=== PATIENT | male | born 1970 | race Caucasian/White ===

== ENCOUNTER 2017-07-04 16:15 | Emergency (ER) | payer MEDICARE, OTHER ==
--- NOTE | 2017-07-04 16:45 | ED Physician Documentation ---
PD HPI LOWER EXT INJURY - Stated complaint Stated Complaint: R FOOT PX - Chief complaint Chief Complaint: Ext Problem - History obtained from History obtained from: Patient, Family - History of Present Illness PD HPI LOW EXT INJURY LOCATION: Right, Ankle Type of injury: Twist Where injury occurred: Home Timing - onset: Today Timing - duration: Hours (2) Timing - details: Abrupt onset Pain level max: 8 Pain level now: 8 Improved by: Rest, Ice, Immobilization Worsened by: Moving, Palpating Associated symptoms: Swelling. No: Weakness, Numbness, Tingling Contributing factors: No: Anticoagulated Similar symptoms before: Diagnosis (Multiple ankle sprains and foot sprains, rolled his ankle at least 9 times in the past month.) Review of Systems Musculoskeletal: denies: Neck pain, Back pain Neurologic: denies: Focal weakness, Numbness PD PAST MEDICAL HISTORY - Past Medical History Past Medical History: No - Past Surgical History Past Surgical History: No - Present Medications Home Medications: Ambulatory Orders Medication Instructions Recorded Confirmed Hydrocodone/Acetaminophen 1 - 2 each PO Q6H PRN #10 tablet 07/04/17 [Hydrocodon-Acetaminophen 5-325] - Allergies Allergies/Adverse Reactions: Allergies Allergy/AdvReac Type Severity Reaction Status Date / Time ibuprofen Allergy Unknown Verified 07/04/17 16:38 - Living Situation Living Situation: reports: With family Living Arrangement: reports: At home - Social History Does the pt have substance abuse?: No - Family History Family history: reports: Non contributory PD ED PE NORMAL - Vitals Vital signs reviewed: Yes - General General: Alert and oriented X 3, No acute distress - Derm Derm: Warm and dry - Extremities Extremities: Other (R ankle - Tender to palpation over the right lateral malleolus as well as the dorsum of the right foot. Neurovascularly intact. Mild swelling. No gross deformity.) - Neuro Neuro: Alert and oriented X 3 - Psych Psych: Normal mood, Normal affect Results - Vitals Vitals: Vital Signs - 24 hr 07/04/17 07/04/17 16:20 19:20 Temperature 36.6 C Heart Rate 100 86 Respiratory 18 20 Rate Blood Pressure 129/89 H 153/99 H O2 Saturation 96 99 Oxygen O2 Source Room air - Rads (name of study) Right ankle x-ray Radiology: Prelim report reviewed, EMP read contemporaneously, See rad report ( Normal) Right foot x-ray Radiology: Prelim report reviewed, EMP read contemporaneously, See rad report ( Normal) PD MEDICAL DECISION MAKING - ED course Complexity details: reviewed results, re-evaluated patient, considered differential, d/w patient, d/w family ED course: Patient is a 47-year-old male who presents to the emergency department with what appears to be a right foot sprain. Given his multiple recent foot and ankle sprains, will place in a walking boot and have him follow-up closely with his doctor for repeat evaluation. Pain well controlled. Patient counseled regarding signs and symptoms for which I believe and urgent re-evaluation would be necessary. Patient with good understanding of and agreement to plan and is comfortable going home at this time This document was made in part using voice recognition software. While efforts are made to proofread this document, sound alike and grammatical errors may occur. Departure - Departure Disposition: 01 Home, Self Care Clinical Impression: Foot sprain Qualifiers: Encounter type: initial encounter Laterality: right Qualified Code(s): S93.601A - Unspecified sprain of right foot, initial encounter Condition: Good Instructions: ED Sprain Foot, ED Boot Aircast Walker Follow-Up: your,doctor in 1 week [Other] Prescriptions: Hydrocodone/Acetaminophen [Hydrocodon-Acetaminophen 5-325] 1 - 2 each PO Q6H PRN #10 tablet PRN Reason: pain Comments: Return if you worsen. Follow-up with your doctor for repeat evaluation. Do not drink alcohol or drive while on narcotic pain medicine. Note that many narcotic pain relievers also contain tylenol/acetaminophen. Please ensure that your total dose of acetaminophen from all sources does not exceed 3 grams (3000mg) per day. You may constipated on this medication, take a stool softener such as "Colace" twice a day while you are on it. Also recommend a iexf-hfk-[id number] laxative such as senna or MiraLAX any day that you do not have a bowel movement. If you received narcotic pain medication in the emergency department, do not drive or operate machinery for the next 24 hours. Discharge Date/Time: 07/04/17 19:20
--- NOTE | 2017-07-04 17:17 | XRAY Report ---
EXAM: RIGHT ANKLE RADIOGRAPHY EXAM DATE: 07/04/2017 05:04 PM. CLINICAL HISTORY: Injury. COMPARISON: None. TECHNIQUE: 3 views. FINDINGS: Bones: Normal. No fractures or bone lesions. Joints: Normal. No effusion. No subluxations. The ankle mortise is normally aligned. Soft Tissues: There is lateral ankle soft tissue swelling. IMPRESSION: No fracture or subluxation. [facility] Referring Provider Line: [phone] SITE ID: [id number]
--- NOTE | 2017-07-04 17:17 | XRAY Preliminary Report ---
Exam: XR ANKLE 3 VIEW RT IMPRESSION: No fracture or subluxation. [facility] SITE ID: [id number]
[2017-07-04] MEDS ORDERED: HYDROcod/ACETAM 5/325 MG TABLET PO STA (17:23)
--- NOTE | 2017-07-04 18:33 | XRAY Preliminary Report ---
Exam: XR FOOT 3 VIEW RT IMPRESSION: No acute fracture or subluxation. [facility] SITE ID: [id number]
--- NOTE | 2017-07-04 18:33 | XRAY Report ---
EXAM: RIGHT FOOT RADIOGRAPHY EXAM DATE: 07/04/2017 06:03 PM. CLINICAL HISTORY: R foot pain, s/p fall. COMPARISON: None. TECHNIQUE: 3 views. FINDINGS: Bones: Normal. No fractures or bone lesions. Joints: Normal. No subluxations. Soft Tissues: There is an accessory navicular ossicle. IMPRESSION: No acute fracture or subluxation. [facility] Referring Provider Line: [phone] SITE ID: [id number]
[2017-07-04 19:21] VITALS: BP 153/99
== END 2017-07-04 19:20 | disposition home or self-care (01) ==
LOC: ED 16:15
DX: S93.601A Unspecified sprain of right foot, initial encounter (principal); X50.9XXA Other and unspecified overexertion or strenuous movements or postures, initial encounter; Y92.009 Unspecified place in unspecified non-institutional (private) residence as the place of occurrence of the external cause
CPT/HCPCS: 73610; 73630; 99283; A9270

== ENCOUNTER 2022-05-29 10:01 | Emergency (ER) | payer MEDICARE, OTHER ==
[2022-05-29] MEDS ORDERED: PROPARACAINE 0.5% OPHTH DROPS 15 ML EACHEYE STA (10:46)
[2022-05-29 11:14] LABS: BASOPHILS # (AUTO) 0.1 10^3/uL (0.0-0.1); BASOPHILS % (AUTO) 0.6 %; EOSINOPHILS # (AUTO) 0.1 10^3/uL (0.0-0.7); EOSINOPHILS % (AUTO) 1.4 %; HCT - HEMATOCRIT 51.8 % (42.0-52.0); HGB - HEMOGLOBIN 17.5 g/dL (14.0-18.0); LYMPHOCYTES # (AUTO) 2.2 10^3/uL (1.5-3.5); LYMPHOCYTES % (AUTO) 22.1 %; MEAN CORPUSCULAR HEMOGLOBIN 30.5 pg (27.0-31.0); MEAN CORPUSCULAR HGB CONC 33.8 g/dL (32.0-36.0); MEAN CORPUSCULAR VOLUME 90.4 fL (80.0-94.0); MEAN PLATELET VOLUME 8.8 fL (7.4-11.4); MONOCYTES % (AUTO) 10.4 %; NEUTROPHILS # (AUTO) 6.4 10^3/uL (1.5-6.6); NEUTROPHILS % (AUTO) 65.2 %; PLT - PLATELET COUNT 320 10^3/uL (130-450); RED BLOOD COUNT 5.73 10^6/uL (4.70-6.10); RED CELL DISTRIBUTION WIDTH 12.4 % (12.0-15.0); WHITE BLOOD COUNT 9.8 x10^3/uL (4.8-10.8)
[2022-05-29] MEDS ORDERED: diphenhydrAMINE INJ 50 MG/ML VIAL IVP STA (11:15)
[2022-05-29] MEDS ORDERED: DROPERIDOL 5 MG/2 ML VIAL IVP STA (11:15)
--- NOTE | 2022-05-29 11:33 | CT Report ---
PROCEDURE: HEAD WO INDICATIONS: R eye superior vision loss TECHNIQUE: Noncontrast 4.5 mm thick angled axial sections acquired from the foramen magnum to the vertex. For r adiation dose reduction, the following was used: automated exposure control, adjustment of mA and/or kV according to patient size. COMPARISON: None. FINDINGS: Image quality: Diagnostic. Patient motion is noted.. CSF spaces: Basal cisterns are patent. No extra-axial fluid collections. Ventricles are normal in size and shape. Brain: No midline shift. No intracranial masses or hemorrhage. Huffman-white matter interface is norm al. Skull and face: Calvarium and visualized facial bones are intact, without suspicious lesions. Sinuses: Visualized sinuses and mastoids are clear. IMPRESSION: 1. No gross CT evidence of acute intracranial abnormalities. Reviewed by: Harry Gonzales MD on 05/29/2022 11:[address] [facility] Approved by: Harry Gonzales MD on 05/29/2022 11:[address] [facility] Station ID: [id number]
[2022-05-29] MEDS ORDERED: GADOBUTROL 15 MMOL/15 ML VIAL ONE (11:36)
[2022-05-29 11:38] LABS: ALBUMIN 4.1 g/dL (3.2-5.5); ALBUMIN/GLOBULIN RATIO 1.1 (1.0-2.2); ALKALINE PHOSPHATASE 72 IU/L (42-121); ALT ALANINE AMINOTRANSFERASE 25 IU/L (10-60); AST ASPARTATE AMINOTRANSFERASE 20 IU/L (10-42); BILIRUBIN,TOTAL 1.2 mg/dL (0.2-1.0); BUN - BLOOD UREA NITROGEN 18 mg/dL (6-20); CARBON DIOXIDE - CO2 26 mmol/L (21-32); CHLORIDE 103 mmol/L (101-111); CREATININE 1.2 mg/dL (0.6-1.2); GFR - MDRD 63 (>89); GLUCOSE 89 mg/dL (70-100); POTASSIUM 3.5 mmol/L (3.5-5.0); SODIUM 137 mmol/L (135-145); TOTAL PROTEIN 7.7 g/dL (6.7-8.2)
[2022-05-29 11:39] LABS: CRP - C-REACTIVE PROTEIN < 1.0 mg/dL (0-1.0)
[2022-05-29] MEDS ORDERED: GADOBUTROL 15 MMOL/15 ML VIAL IVP ONE (12:54)
--- NOTE | 2022-05-29 12:54 | ED Physician Documentation ---
History of Present Illness - Stated complaint Stated Complaint: VISION LOSS,HIGH BP - Chief complaint Chief Complaint: Neuro - History obtained from History obtained from: Patient - History of Present Illness Timing: How many days ago (3-4) Pain level max: 6 Pain level now: 5 - Additonal information Additional information: 52-year-old male presents to the emergency department stating he has had difficulty with vision in the superior portion of his right eye for the past 3 to 4 days. He states that he has a history of migraine headaches and has had a headache for the past 3 days as well. Nothing seems to make it better or worse. No fevers. No chills. Does not wear contacts. Has not had any trauma. He called his eye doctor who stated that they could see him at the end of June. Went to the walk-in clinic this morning and was sent here. Headache is similar to prior migraines, gradual onset. Positive photophobia. Patient also states that his blood pressure has been high, but he does not usually check his blood pressure. Review of Systems Constitutional: denies: Fever, Chills Throat: denies: Sore throat Cardiac: denies: Chest pain / pressure, Palpitations Respiratory: denies: Cough GI: denies: Vomiting, Constipation, Diarrhea Musculoskeletal: denies: Neck pain, Back pain Neurologic: denies: Headache PD PAST MEDICAL HISTORY - Past Medical History Past Medical History: Yes Musculoskeletal: Chronic back pain - Past Surgical History Past Surgical History: No General: Appendectomy Ortho: Spine surgery - Present Medications Home Medications: Ambulatory Orders Medication Instructions Recorded Confirmed Lisinopril [Zestril] 10 mg PO DAILY #30 tablet 05/29/22 - Allergies Allergies/Adverse Reactions: Allergies Allergy/AdvReac Type Severity Reaction Status Date / Time ibuprofen Allergy Unknown Verified 05/29/22 10:13 - Social History Does the pt smoke?: No Smoking Status: Former smoker Does the pt drink ETOH?: Yes Does the pt have substance abuse?: No - Immunizations Immunizations are current?: Yes PD ED PE NORMAL - Vitals Vital signs reviewed: Yes - General General: Alert and oriented X 3, No acute distress - HEENT HEENT: Atraumatic (No tenderness over the temporal artery), PERRL, EOMI, Ears normal, Moist mucous membranes, Pharynx benign, Other (IOP OD 20, OS 18. Bedside ultrasound appears to have a normal-appearing ocular ultrasound bilaterally. Normal-appearing fundus on funduscopic exam.) - Neck Neck: Supple, no meningeal sign, No bony TTP - Cardiac Cardiac: RRR, Strong equal pulses - Respiratory Respiratory: No respiratory distress, Clear bilaterally - Abdomen Abdomen: Soft, Non tender, Non distended - Back Back: No spinal TTP - Derm Derm: Warm and dry - Extremities Extremities: No edema - Neuro Neuro: Alert and oriented X 3 - Psych Psych: Normal mood, Normal affect Results - Vitals Vitals: Vital Signs - 24 hr 05/29/22 05/29/22 10:11 13:15 Temperature 36.9 C Heart Rate 77 72 Respiratory 18 18 Rate Blood Pressure 187/112 H 177/119 H O2 Saturation 98 96 Oxygen O2 Source Room air - Labs Labs: Laboratory Tests 05/29/22 05/29/22 05/29/22 11:08 11:08 11:08 WBC 9.8 RBC 5.73 Hgb 17.5 Hct 51.8 MCV 90.4 MCH 30.5 MCHC 33.8 RDW 12.4 Plt Count 320 MPV 8.8 Neut # (Auto) 6.4 Lymph # (Auto) 2.2 Cottle # (Auto) 1.0 Eos # (Auto) 0.1 Baso # (Auto) 0.1 Absolute Nucleated RBC 0.00 Nucleated RBC % 0.0 ESR 2 Sodium 137 Potassium 3.5 Chloride 103 Carbon Dioxide 26 Anion Gap 8.0 BUN 18 Creatinine 1.2 Estimated GFR (MDRD) 63 L Glucose 89 Calcium 9.0 Total Bilirubin 1.2 H AST 20 ALT 25 Alkaline Phosphatase 72 C-Reactive Protein < 1.0 Total Protein 7.7 Albumin 4.1 Globulin 3.6 Albumin/Globulin Ratio 1.1 - Rads (name of study) CT head Radiology: Final report received, See rad report Brain MRI Radiology: Final report received, See rad report PD Medical Decision Making - ED course Complexity details: reviewed results, re-evaluated patient, considered differential, d/w patient Reviewed Lab Results: No significant lab abnormalities. Normal CBC. Normal sed rate. Normal CMP other than a minimally elevated bilirubin. Negative CRP. ED course: 52-year-old male with right eye vision changes. Unclear etiology. No evidence of temporal arteritis. No abnormality is on exam of the eye itself today. No acute findings on head CT or brain MRI. Normal intraocular pressure. No abnormality visible on funduscopic exam. Recommend that he follow-up closely with ophthalmology on Tuesday for a full dilated eye exam. We will also start the patient on a low-dose of lisinopril and have him follow-up with his doctor for further management of his hypertension. Patient counseled regarding signs and symptoms for which I believe and urgent re-evaluation would be necessary. Patient with good understanding of and agreement to plan and is comfortable going home at this time This document was made in part using voice recognition software. While efforts are made to proofread this document, sound alike and grammatical errors may occur. Departure - Departure Disposition: Home, Self Care Clinical Impression: Vision changes Hypertension Qualifiers: Hypertension type: unspecified Qualified Code(s): I10 - Essential (primary) hypertension Migraine Qualifiers: Migraine type: unspecified Status migrainosus presence: without status migrainosus Intractability: not intractable Qualified Code(s): G43.909 - Migraine, unspecified, not intractable, without status migrainosus Condition: Good Instructions: ED Blurred Vision, ED Cephalgia Unspecified Follow-Up: Jos Rowe MD [Provider Admit Priv/Credential] - Within 3 Days Prescriptions: Lisinopril [Zestril] 10 mg PO DAILY #30 tablet Comments: You need to be seen by an eye doctor on Tuesday or Tuesday. If your eye doctor cannot see you, please call Dr. Rowe's office for an urgent appointment. Your MRI, CT scan and laboratory testing did not show any acute abnormalities today. Please return if you worsen. We will start you on medication for your blood pressure as well. This was sent to [facility] in [place]. Discharge Date/Time: 05/29/22 13:22
--- NOTE | 2022-05-29 12:58 | MRI Report ---
PROCEDURE: BRAIN W/WO INDICATIONS: R eye superior vision loss CONTRAST: GADAVIST 11.0 ML TECHNIQUE: Noncontrast axial T1 spin echo, axial T2 fast spin echo, sagittal and axial FLAIR, coronal T2 fast sp in echo, axial gradient echo, axial diffusion and ADC through the brain. After the administration of contrast, axial and coronal T1 spin echo with fat saturation through the brain. COMPARISON: Correlation is made with head CT, 05/29/2022. FINDINGS: Image quality: Diagnostic CSF spaces: Basal cisterns are patent. No extra-axial fluid collections. Ventricles are normal in size and shape. Brain: No midline shift. No intracranial bleeds or masses. No abnormal intracranial enhancement. There is cerebral volume loss for age. There is periventricular white matter chronic small vessel is chemic change. The brainstem appears normal. Diffusion-weighted images demonstrate no acute ischemi c insults. No chronic ischemic insults. Normal intravascular flow voids are present. Skull and face: Calvarial marrow is normal in signal. In this patient with this given history, scru tiny is given to the orbits. No masses or abnormal enhancement can be seen involving the orbits. The globes demonstrate an unremarkable, symmetric appearance. Sinuses: Sinuses and mastoids appear clear . IMPRESSION: No significant abnormality of the orbits or globes can be seen. No findings of acute or subacute infarction are seen. No masses or abnormal enhancement can be seen. Reviewed by: Zev Shane MD on 05/29/2022 11:57 AM [facility] Approved by: Zev Shane MD on 05/29/2022 11:57 AM [facility] Station ID: [id number]
[2022-05-29 13:16] VITALS: BP 177/119
== END 2022-05-29 13:22 | disposition home or self-care (01) ==
LOC: ED 10:01
DX: G43.909 Migraine, unspecified, not intractable, without status migrainosus (principal); H53.9 Unspecified visual disturbance; I10 Essential (primary) hypertension; Z87.891 Personal history of nicotine dependence
CPT/HCPCS: 36415; 70450; 70553; 80053; 85025; 85651; 86140; 96374; 96375; 99284; A9585; J1200; J3490

== ENCOUNTER 2022-08-25 14:44 | Outpatient (CLI) | payer MEDICARE | END 2022-08-25 14:45 | disposition home or self-care (01) | LOC: DI 14:44 | PROVIDERS: ATTEND Physician Assistant | DX: R94.31 Abnormal electrocardiogram [ECG] [EKG] (principal); I10 Essential (primary) hypertension | CPT/HCPCS: 93306 ==

== ENCOUNTER 2023-09-16 07:46 | Outpatient (CLI) | payer MEDICARE ==
[2023-09-16 12:28] LABS: BASOPHILS # (AUTO) 0.1 10^3/uL (0.0-0.1); BASOPHILS % (AUTO) 0.8 %; EOSINOPHILS # (AUTO) 0.2 10^3/uL (0.0-0.7); EOSINOPHILS % (AUTO) 2.3 %; HCT - HEMATOCRIT 48.9 % (42.0-52.0); HGB - HEMOGLOBIN 16.5 g/dL (14.0-18.0); LYMPHOCYTES # (AUTO) 3.1 10^3/uL (1.5-3.5); LYMPHOCYTES % (AUTO) 37.2 %; MEAN CORPUSCULAR HEMOGLOBIN 31.3 pg (27.0-31.0); MEAN CORPUSCULAR HGB CONC 33.7 g/dL (32.0-36.0); MEAN CORPUSCULAR VOLUME 92.8 fL (80.0-94.0); MEAN PLATELET VOLUME 9.2 fL (7.4-11.4); MONOCYTES # (AUTO) 0.9 10^3/uL (0.0-1.0); MONOCYTES % (AUTO) 11.2 %; NEUTROPHILS # (AUTO) 4.1 10^3/uL (1.5-6.6); PLT - PLATELET COUNT 334 10^3/uL (130-450); RED BLOOD COUNT 5.27 10^6/uL (4.70-6.10); RED CELL DISTRIBUTION WIDTH 12.5 % (12.0-15.0); WHITE BLOOD COUNT 8.4 x10^3/uL (4.8-10.8)
[2023-09-16 12:57] LABS: ALBUMIN 4.4 g/dL (3.2-5.5); ALBUMIN/GLOBULIN RATIO 1.6 (1.0-2.2); ALKALINE PHOSPHATASE 60 IU/L (42-121); ALT ALANINE AMINOTRANSFERASE 16 IU/L (10-60); AST ASPARTATE AMINOTRANSFERASE 16 IU/L (10-42); BILIRUBIN,TOTAL 0.6 mg/dL (0.2-1.0); BUN - BLOOD UREA NITROGEN 23 mg/dL (6-20); CALCIUM 9.5 mg/dL (8.5-10.3); CARBON DIOXIDE - CO2 26 mmol/L (21-32); CHLORIDE 109 mmol/L (101-111); CHOL/HDL RATIO 2.6 (<5.0); CHOLESTEROL 122 mg/dL; CREATININE 1.3 mg/dL (0.6-1.3); GFR - MDRD 57 (>89); GLUCOSE 100 mg/dL (74-104); HDL CHOLESTEROL 47 mg/dL; LDL CHOLESTEROL,CALCULATED 64 mg/dL; LDL/HDL RATIO 1.4 (<3.6); POTASSIUM 4.2 mmol/L (3.5-4.5); SODIUM 140 mmol/L (135-145); TOTAL PROTEIN 7.1 g/dL (6.4-8.9); TRIGLYCERIDES 56 mg/dL (48-352); VLDL CHOLESTEROL 11 mg/dL
[2023-09-16 13:04] LABS: THYROID STIMULATING HORMONE 1.45 uIU/mL (0.34-5.60)
== END 2023-09-16 07:47 | disposition home or self-care (01) ==
LOC: LAB.N 07:46
PROVIDERS: ATTEND Physician Assistant
DX: I10 Essential (primary) hypertension (principal); Z12.5 Encounter for screening for malignant neoplasm of prostate; N52.9 Male erectile dysfunction, unspecified
CPT/HCPCS: 36415; 80053; 80061; 84403; 84443; 85025; G0103; 83721; 84153